=== PATIENT | female | born 1940 | race Two or more races ===

== ENCOUNTER 2025-06-22 17:56 | Emergency (ER) | payer OTHER ==
[~2025-06-22] VITALS: Ht 152.4 cm; Wt 62.6 kg
[2025-06-22] MEDS ORDERED: TENORMIN50 M1 PO (18:32)
[2025-06-22] MEDS ORDERED: SYNTHROID88 MCG PO (18:32)
[2025-06-22] MEDS ORDERED: ZETIA10 MG PO (18:32)
[2025-06-22] MEDS ORDERED: ATORVASTATIN CA40 MG PO (18:32)
[2025-06-22] MEDS ORDERED: AVAPRO150 MG PO (18:32)
[2025-06-22] MEDS ORDERED: ENALAPRILAT DIHYDRATE 1.25 MG/ML VIAL IV ONE (19:45)
[2025-06-22] MEDS ORDERED: ACETAMINOPHEN 500 MG GEL..CAP PO ONE (19:45)
[2025-06-22] MEDS ORDERED: CEFTRIAXONE SODIUM 1,000 MG VIAL IV ONE (19:45)
[2025-06-22 20:47] LABS: BASO % 0.5 % (0.1-1.2); EOS # 0.22 (0.04-0.54); EOS % 3.4 % (0.7-7.0); LYMPH # 2.24 (1.18-3.74); LYMPH % 34.7 % (19.3-53.1); MEAN PLATELET VOLUME 12.20 fl (9.4-12.4); MONO # 0.38 (0.24-0.82); MONO % 5.9 % (4.7-12.5); NEUT # 3.56 (1.56-6.13); NEUT % 55.0 % (34.0-71.1); RED CELL DISTRIBUTION WIDTH 13.4 % (11.6-14.4)
[2025-06-22 21:06] LABS: COVID-19 AG NEGATIVE (NEGATIVE)
[2025-06-22] MEDS ORDERED: LABETALOL HCL 100 MG/20 ML ML IV ONE (22:45)
[2025-06-22] MEDS ORDERED: AMOX-CLAV 875-1 EACH PO (23:41)
[2025-06-22] MEDS ORDERED: CIPROFLOX-DEXA7.5 ML OT (23:41)
== END 2025-06-22 23:55 | disposition home or self-care (01) ==
LOC: ER 17:56
PROVIDERS: Emergency Medicine; Preventive Medicine Public Health & General Preventive Medicine
DX: I10 Essential (primary) hypertension (principal); H92.01 Otalgia, right ear; R51.9 Headache, unspecified; Z20.822 Contact with and (suspected) exposure to COVID-19; E03.8 Other specified hypothyroidism; Z88.9 Allergy status to unspecified drugs, medicaments and biological substances
CPT/HCPCS: 36415; 70450; 96365; 99284; J0696; J3490 ×2